=== PATIENT | female | born 1985 | race Caucasian/White ===

== ENCOUNTER → 2023-11-18 11:29 | Outpatient (REF) | payer BC, SELFPAY ==
[2023-11-18 12:38] LABS: ALT (SGPT) 21 U/L (0-35); AST (SGOT) 19 U/L (14-36); Albumin 4.1 g/dl (3.5-5.0); Alkaline Phosphatase 147 U/L (38-126); Blood Urea Nitrogen 14 mg/dl (7-17); Carbon Dioxide 22 mmol/L (22-30); Chloride 106 mmol/L (98-107); Glucose 108 mg/dl (70-99); Sodium 137 mmol/L (135-145); Total Bilirubin 0.3 mg/dl (0.2-1.3); Total Protein 6.8 g/dl (6.3-8.2); eGFR > 60.00
[2023-11-18 13:07] LABS: Glycohemoglobin (HgbA1c) 6.4 % (4.0-5.6)
== END ==
LOC: REG 11:29
PROVIDERS: ATTENDING PHYSICIAN Emergency Medicine
DX: E11.65 Type 2 diabetes mellitus with hyperglycemia (principal)
CPT/HCPCS: 36415; 80053; 83036

== ENCOUNTER → 2023-11-23 10:10 | Outpatient (REF) | payer BC, SELFPAY ==
[2023-11-23 18:49] LABS: GGTP 44 U/L (12-43)
[2023-11-25 11:37] LABS: Alk Phos Bone Specific Results 16.8 ug/L
== END ==
LOC: CLAB 10:10
PROVIDERS: ATTENDING PHYSICIAN Emergency Medicine
DX: R31.9 Hematuria, unspecified (principal); R74.8 Abnormal levels of other serum enzymes
CPT/HCPCS: 36415; 82977; 84075; 87086

== ENCOUNTER → 2023-12-15 08:54 | Outpatient (REF) | payer BC, SELFPAY | LOC: HWRAD 08:54 | PROVIDERS: ATTENDING PHYSICIAN Emergency Medicine | DX: R74.8 Abnormal levels of other serum enzymes (principal) | CPT/HCPCS: 76700 ==

== ENCOUNTER → 2024-02-19 09:56 | Outpatient (REF) | payer BC, SELFPAY ==
[2024-02-19 11:57] LABS: ALT (SGPT) 25 U/L (0-35); AST (SGOT) 18 U/L (14-36); Alkaline Phosphatase 142 U/L (38-126); Blood Urea Nitrogen 15 mg/dl (7-17); Calcium 9.5 mg/dl (8.4-10.2); Carbon Dioxide 23 mmol/L (22-30); Chloride 106 mmol/L (98-107); Glucose 112 mg/dl (70-99); HDL Cholesterol 34 mg/dl; LDL Cholesterol, Calculated 73 mg/dl; Potassium 5.1 mmol/L (3.5-5.1); Sodium 139 mmol/L (135-145); Total Bilirubin 0.2 mg/dl (0.2-1.3); Total Cholesterol 129 mg/dl (50-199); Total Protein 6.5 g/dl (6.3-8.2); Triglyceride 114 mg/dl (10-149); Very Low Density Lipoprotein 22 mg/dl (0-30); eGFR > 60.00
[2024-02-19 12:30] LABS: Glycohemoglobin (HgbA1c) 5.9 % (4.0-5.6)
[2024-02-19 12:44] LABS: Microalbumin, Random Urine 3.5 mg/dl (0.6-1.7); Microalbumin/creatinine Ratio 16.2 mg/g
== END ==
LOC: REG 09:56
PROVIDERS: ATTENDING PHYSICIAN Emergency Medicine
DX: E11.65 Type 2 diabetes mellitus with hyperglycemia (principal); Z79.4 Long term (current) use of insulin; E66.01 Morbid (severe) obesity due to excess calories
CPT/HCPCS: 36415; 80053; 80061; 82043; 82570; 83036

== ENCOUNTER → 2024-07-13 12:04 | Outpatient (REF) | payer BC, SELFPAY ==
[2024-07-13 13:02] LABS: ALT (SGPT) 19 U/L (0-35); AST (SGOT) 16 U/L (14-36); Alkaline Phosphatase 123 U/L (38-126); Blood Urea Nitrogen 14 mg/dl (7-17); Calcium 9.2 mg/dl (8.4-10.2); Carbon Dioxide 17 mmol/L (22-30); Chloride 106 mmol/L (98-107); Glucose 153 mg/dl (70-99); Potassium 4.5 mmol/L (3.5-5.1); Sodium 137 mmol/L (135-145); Total Bilirubin 0.3 mg/dl (0.2-1.3); Total Protein 6.6 g/dl (6.3-8.2); eGFR > 60.00
[2024-07-13 13:24] LABS: Microalbumin, Random Urine 13.2 mg/dl (0.6-1.7); Microalbumin/creatinine Ratio 97.1 mg/g
[2024-07-13 14:05] LABS: Glycohemoglobin (HgbA1c) 7.2 % (4.0-5.6)
[2024-07-16 03:51] LABS: C-Peptide 4.3 ng/mL (0.5-3.3)
== END ==
LOC: REG 12:04
PROVIDERS: ATTENDING PHYSICIAN Emergency Medicine
DX: E11.69 Type 2 diabetes mellitus with other specified complication (principal); E78.00 Pure hypercholesterolemia, unspecified; E66.01 Morbid (severe) obesity due to excess calories; Z83.3 Family history of diabetes mellitus
CPT/HCPCS: 36415; 80053; 82043; 82570; 83036; 84681; 86341